=== PATIENT | female | born 1960 | race Caucasian/White ===

== ENCOUNTER → 2022-03-07 15:36 | Outpatient (CLI) | payer OTHER, SELFPAY ==
[2022-03-07 16:14] LABS: COVID19 -Nasal RAPID Negative (Negative)
== END ==
PROVIDERS: PCP Family Medicine; Visit Provider Surgery
DX: Z01.812 Encounter for preprocedural laboratory examination (principal); Z20.822 Contact with and (suspected) exposure to COVID-19
CPT/HCPCS: 87635; C9803

== ENCOUNTER 2022-03-08 13:21 | Observation (INO) | payer OTHER, SELFPAY ==
[2022-03-01 14:54] VITALS: BMI 30.2
[2022-03-08] VITALS (19 sets, daily range): BP systolic 86–155; BP diastolic 47–94; PULSE 64–93; RESP 11–31; TEMP 36.2–37.7; O2SAT 92–99; BMI 30.2
--- NOTE | 2022-03-08 | PATH_ITS ---
[facility] Accession Number: [id number] . 01 Material submitted: . gallbladder - GALLBLADDER . 01 Diagnosis: Gallbladder, Cholecystectomy: Acute and chronic cholecystitis, cholesterolosis, and cholelithiasis. [facility] 03/13/2022 1128 Local . 01 Electronically signed: . Teresa Carlin MD, Pathologist NPI- [id number] . 01 Gross description: . Received in a container of formalin labeled gallbladder is a 7.5 x 2.0 x 1.5 cm previously opened gallbladder and cystic duct. The serosa is variegated, diffusely hemorrhagic with areas of attached apparent suppurative exudate. The cystic duct margin is unremarkable and inked blue. The cystic duct is approximately 50 percent occluded by brown bile sludge and mixed with a few granular calculi averaging 0.1 cm. The gallbladder mucosa is dark red and diffusely hemorrhagic with focal gold stippling consistent with cholesterolosis. There are fibrous cut surfaces with a wall thickness averaging 0.3 cm. Software Requirements Engineer sections are submitted in cassette A1. ([id number]) /[facility] 03/09/2022 1656 Local . 01 Pathologist provided ICD-10: K80.50 . 01 CPT . 257003 Specimen Comment: A courtesy copy of this report has been sent to [phone] Performed at: 01 [facility] [address] [place] [address], [place], [place] [id number] MD Brown Frankel MD Phone: [phone]
[2022-03-08] MEDS: LACTATED RINGERS 1,000 ML 100 ML IV (09:15)
--- NOTE | 2022-03-08 09:57 | PM.PREOP ---
Pre-operative Note Interval Note History & Physical reviewed/Exam performed by Physician: Yes Changes to H&P: No
--- NOTE | 2022-03-08 10:00 | P.OP_ITS ---
Operative Date/Time/Diagnoses Date of procedure: 03/08/22 Time of procedure: 10:00 Pre-op diagnosis: Biliary colic Post-op diagnosis: same Procedure & Clinicians Procedure: Laparoscopic cholecystectomy Same procedure as scheduled: Yes Indications: Biliary colic Surgeon: Parker Pyle Industrial Truck Operator: Anthony Wilson Click Yes if Unassisted: Yes Anesthesia Type: General Operative Notes Findings: -Intrahepatic gallbladder -Short cystic duct -Bile leak from what is likely the avulsed cystic duct. Specimen(s): other (Gallbladder) Estimated Blood Loss (mL): 10 Procedure in detail: The patient was placed supine on the table and bilateral lower extremity compression devices were applied. Anesthesia was induced they were intubated with an endotracheal tube and received 2g of Ancef. A time-out was performed. They were prepped and draped in sterile fashion. An infraumbilical incision was made, the umbilical stalk was elevated and the fascia was sharply incised entering the abdomen atraumatically. A blunt tip 12mm balloon trocar was then inserted, pneumoperitoneum was established and inspection of the abdomen demonstrated no evidence of injury. They were placed head up and right side up and then a 11 mm port was placed high in the epigastrium and two 5mm in the right upper quadrant. The gallbladder was intrahepatic and there were dense adhesions within the hepatocystic triangle. Therefore the gallbladder was approached in a top-down fashion. The medial and lateral plane between the gallbladder and liver were developed with electrocautery until the gallbladder was attached only at the neck. The cystic duct was short/contracted and perhaps folded on its self.. Using careful blunt dissection I dissected at the inferior most portion of the gallbladder to separate out the cystic duct. In doing so the gallbladder was avulsed from its duct. An inspection of the the remaining structures demonstrated the common bile duct with associated adipose tissue and adhesions. I could not definitively identify the cystic duct. My surgical partner joined the case at this point. There was a small hole approximately 2 mm within a ductal structure with scant bile leak however we could not determine if this was the common duct or the cystic duct. In order to clarify the anatomy numerous attempts were made to perform a cholangiogram but this not successful. An additional 5 mm trocar was placed high in the right upper quadrant to obtain a better angle of approach with the catheter and guide wire and this was not successful either Unable to perform a cholangiogram I felt the best course of action at this point was to place a drain and close rather then risk injuring the common duct with exploration or placement of clips. A 19 F drain was placed into the gallbladder fossa. The abdomen was irrigated with sterile saline. The specimen was removed using Endo-Catch. The abdomen was desufflated. The umbilical fascia was closed with 0 Vicryl in a wcaaja-tj-lecur fashion under direct visualization. Skin incisions were irrigated and closed with 4-0 Monocryl. 30 ml of 0.25% bupivacaine was infiltrated into the subcutaneous tissue of the incisions. The wounds were sealed with Dermabond. Patient emerged from anesthesia was extubated and transferred to recovery in stable condition. The sponge and instrument count at the end of the operation was correct. Post-operative Condition: stable Disposition: same day surgery Plan for aftercare: Admission will need transfer to a facility with ERCP capability.
[2022-03-08] MEDS: CEFAZOLIN 2 GM/20 ML SYRINGE IV (10:33)
--- NOTE | 2022-03-08 10:45 | SUR.OPER ---
Supine on padded OR bed, head on pillow, safety belt at thigh, left arm padded and tucked at side. Right arm secured on padded arm board <90 degrees abduction. Legs uncrossed. Padded footboard in place. Tape over blanket to secure lower legs.
[2022-03-08] MEDS: BUPIVACAINE 0.25% (PF) VIAL 30 ML INJ (10:49)
[2022-03-08] MEDS: IOPAMIDOL 50 ML VIAL INJ (11:47)
[2022-03-08] MEDS: fentaNYL 100 MCG/2 ML INJ IV ×2 (13:45→13:53)
--- NOTE | 2022-03-08 14:00 | SUR.PHASEI ---
Pt arrived with airway, placed on nasal cannula 02, once out, pt remained on 02 and medicated with fentanyl.
--- NOTE | 2022-03-08 14:12 | SUR.PHASEI ---
Report called, awaiting time from last narcotic to be up.
--- NOTE | 2022-03-08 14:17 | SUR.PHASEI ---
Pt weaned off o2, transfered up to room on room air.
--- NOTE | 2022-03-08 14:41 | SUR.PHASEI ---
Pt transfered up to room, left with AC staf and left in stable condition.
[2022-03-08] MEDS: OXYCODONE IR 5 MG TABLET PO ×2 (15:50→19:57)
[2022-03-08] MEDS: SODIUM CHLORIDE 0.9% 1,000 ML 100 ML IV (15:51)
[2022-03-08] MEDS: HYDROMORPHONE 0.5 MG INJ IV (17:26)
[2022-03-08] MEDS: PIPERACILLIN/TAZO 3.375 GM in SODIUM CHLORIDE 0.9% 100 ML IV (17:27)
--- NOTE | 2022-03-08 18:08 | PM.HP.1 ---
History of Present Illness History of Present Illness Date Patient Seen: 03/08/22 Time Patient Seen: 18:08 Chief complaint: LAP SHAUNNA Narrative: Kell Patel is a 62-year-old woman who underwent a laparoscopic cholecystectomy today for biliary colic. She had a intrahepatic gallbladder with a shortened cystic duct with significant adhesions within the hepatocystic triangle. The procedure was performed in top-down fashion. Upon dissecting out the neck of the gallbladder the gallbladder was avulsed from its duct. Inspection of the hepatocystic triangle did not clearly identify the cystic duct there is a 2 mm lumen identified however I could not tell whether this was truly the cystic duct or hole in the common bile duct or some other structure. An attempt at cholangiogram was made to delineate the anatomy but this did not prove to be successful. A drain was left in the gallbladder fossa and she is admitted for IV antibiotics and ultimately transfer to a center with ERCP capability. I discussed these details with both the patient and her . currently she has abdominal pain which is controlled no nausea or vomiting fever. A potential transfer to the [facility] is pending. Patient History Medical History Hypertension Surgical History History of Family & Social History Family History Father Heart disease Stroke Social History: household members spouse lives independently Yes Safety & Behavioral: Feels Safe in Current Yes Environment Been Physically Hurt or No Threatened By a Person Tobacco & Substance use: Smoking Status Never smoker alcohol intake current alcohol intake frequency a few times a month Substance Use Type does not use Meds Home Medications and Allergies Home Medications Medication Instructions Recorded Confirmed Type lisinopril 20 mg tablet 20 mg PO DAILY 02/16/22 03/08/22 History naproxen 500 mg tablet 500 mg PO DAILY PRN tab 02/16/22 03/08/22 History acetaminophen 500 mg tablet 1,000 mg PO Q6H PRN 03/08/22 03/08/22 History oxycodone 5 mg tablet 5 mg PO Q6H PRN #20 tab 03/08/22 Rx Allergies Allergy/AdvReac Type Severity Reaction Status Date / Time Sulfa (Sulfonamide Allergy Severe Hives, Verified 03/08/22 13:44 Antibiotics) swelling [SULFA (SULFONAMIDE of throat ANTIBIOTICS)] Exam Vital Signs (past 8 hours): - 03/08/22 13:22 03/08/22 13:26 03/08/22 13:32 Temperature 97.7 F 97.6 F Pulse Rate 89 69 64 Respiratory Rate 31 H 30 H 26 H Blood Pressure 86/47 L 99/53 L 101/57 L Pulse Oximetry 92 96 99 03/08/22 13:36 03/08/22 13:53 03/08/22 13:58 Temperature 97.2 F L Pulse Rate 73 75 76 Respiratory Rate 11 L 20 19 Blood Pressure 98/59 L 92/59 L 120/68 Pulse Oximetry 97 97 97 03/08/22 14:09 03/08/22 14:17 03/08/22 14:30 Temperature 97.9 F 98.1 F 99.2 F Pulse Rate 75 78 87 Respiratory Rate 20 18 19 Blood Pressure 140/74 135/65 144/82 H Pulse Oximetry 98 98 97 03/08/22 15:07 03/08/22 15:08 03/08/22 15:37 Temperature 99.2 F 99.5 F Pulse Rate 85 89 Respiratory Rate 17 17 Blood Pressure 142/93 H 155/94 H Pulse Oximetry 97 96 97 03/08/22 16:37 03/08/22 17:37 Temperature 99.8 F H 99.9 F H Pulse Rate 89 93 H Respiratory Rate 20 17 Blood Pressure 136/77 139/79 Pulse Oximetry 97 95 Oxygen Delivery Method Room Air Oxygen Flow Rate 0 Narrative Exam Narrative: General adult female alert oriented no acute distress Chest nonlabored respirations Abdomen soft appropriately tender to palpation. Drain right upper quadrant serosanguineous Assessment & Plan Assessment and plan (1) Bile leak: Status: Acute Plan 62-year-old woman status post laparoscopic cholecystectomy with a bile leak. Difficult gallbladder intrahepatic shortened cystic duct performed in top-down fashion the gallbladder of was avulsed from the cystic duct. bile leak was observed from a ductal structure however I could not definitively state that the leak was from the cystic duct and therefore the leak was not ligated for concern of causing injury. She needs an ERCP with potential stenting for further treatment, this service is not available at this facility. Requesting transfer to a tertiary facility for ERCP. - NPO and IV fluids - Zosyn - pain control -SCDs Time Spent With Patient Critical Care time: I spent a total of [] minutes of critical care time on this patient's care today; this time is exclusive of procedural time.
--- NOTE | 2022-03-08 19:40 | DI.MRI.S_ITS ---
PROCEDURE: MR ABDOMEN WO CON INDICATIONS: Suspected cystic duct leak TECHNIQUE: Coronal HASTE through the abdomen, axial 2-D FLASH in- and [id number], and breath-hold T2 FSE with fat saturation through the biliary system and pancreas. Oblique coronal and axial thin-slice HASTE, radial thick-slab HASTE centered on the extrahepatic bile ducts. COMPARISON: None. FINDINGS: Image quality: There is motion artifact limiting evaluation. Pancreas and biliary system: The gallbladder is surgically absent. Intra- and extra-hepatic biliary ducts are non dilated. No filling defects within the common bile duct to suggest choledocholithiasis. Pancreas is normal in morphology, without peripancreatic edema or fluid collections. Pancreatic duct is normal in caliber. There is a small amount of free fluid in the gallbladder fossa as well as a small amount of perihepatic fluid. No discrete loculated fluid collection identified in the abdomen. Other solid organs: The liver demonstrates signal dropout on [id number] imaging consistent with fatty infiltration. There is a cyst in the right hepatic lobe. Spleen is normal in size. No adrenal nodules. Both kidneys are normal in size, without hydronephrosis. Nodes and vessels: No retroperitoneal or mesenteric adenopathy by size criteria. Aorta and inferior vena cava are normal in size. Bowel and peritoneum: Visualized bowel loops are normal in caliber. There is a small amount of perihepatic free fluid. Lung bases: No basal pleural effusions. Heart size is normal. Bones and soft tissues: No ventral hernias. Bone marrow is of normal overall signal. IMPRESSION: 1. Small amount of perihepatic free fluid and free fluid in the gallbladder fossa. The findings are nonspecific but are compatible with clinically suspected bile leak. Findings discussed with Dr. Gutierrez on 03/08/2022 at 9:27 p.m.. Dictated by: Brown Vazquez M.D. on 03/08/2022 at 21:24 Approved by: Brown Vazquez M.D. on 03/08/2022 at 21:32
[2022-03-08] MEDS: ACETAMINOPHEN 325 MG TABLET 650 MG PO (19:58)
[2022-03-08] MEDS: ONDANSETRON 4 MG/2 ML INJ IV (21:40)
[2022-03-09] VITALS (11 sets, daily range): BP systolic 117–164; BP diastolic 64–85; PULSE 80–91; RESP 16–19; TEMP 36.3–38.3; O2SAT 94–100
[2022-03-09] MEDS: OXYCODONE IR 5 MG TABLET PO ×4 (00:08→14:19)
[2022-03-09] MEDS: PIPERACILLIN/TAZO 3.375 GM in SODIUM CHLORIDE 0.9% 100 ML IV ×3 (02:30→22:13)
[2022-03-09] MEDS: ACETAMINOPHEN 325 MG TABLET 650 MG PO ×3 (02:30→23:27)
[2022-03-09 07:00] LABS: Add Manual Diff / Slide Review NO; Basophils Absolute Auto 0 /uL (0-100); Basophils Percent Auto 0.1 % (0-2); Eosinophils Absolute Auto 0 /uL (0-450); Hematocrit 38.1 % (36-46); Lymphocytes Absolute Auto 1400 /uL (1100-4500); Lymphocytes Percent Auto 10.3 % (25-40); Mean Corpuscular HGB Conc 34.2 % (30-36); Mean Corpuscular Hemoglobin 28.1 PG (26-34); Mean Corpuscular Volume 82.2 fL (80-100); Monocytes Absolute Auto 1100 /uL (0-900); Monocytes Percent Auto 7.8 % (3-14); Neutrophils Absolute Auto 11000 /uL (1500-7000); Neutrophils Percent Auto 81.8 % (50-75); Platelet Count 201 X10^3/uL (150-400); Red Blood Cell Count 4.63 X10^6/uL (4.0-5.2); White Blood Cell Count 13.5 X10^3/uL (4.5-11.0)
[2022-03-09 07:16] LABS: Alanine Aminotransferase 55 IU/L (<35); Albumin 3.9 g/dL (3.5-5.0); Albumin Globulin Ratio 1.3 (1.0-2.8); Alkaline Phosphatase 56 U/L (38-126); Aspartate Aminotransferase 71 IU/L (14-36); BUN Creatinine Ratio 17.2 (6-22); Bilirubin Total 0.8 mg/dL (0.2-1.3); Blood Urea Nitrogen 11 mg/dL (7-17); Calcium 8.7 mg/dL (8.4-10.2); Carbon Dioxide 24 mmol/L (22-32); Chloride 105 mmol/L (98-107); Estimated Glomerular Filt Rate > 60 mL/min (>60); Globulin 3.1 g/dL (1.7-4.1); Glucose 127 mg/dL (80-110); HEMOLYSIS < 15 (0-50); Sodium 137 mmol/L (137-145)
--- NOTE | 2022-03-09 08:59 | PM.PNPO.1 ---
Subjective Subjective Date Patient Seen: 03/09/22 Time Patient Seen: 09:00 Interval history: No major events overnight. Spoke with Gastroenterology and surgery at the [facility] in regards to transfer for ERCP. All are in agreement for transfer waiting on available beds MRCP overnight demonstrates no abnormality of the common bile duct. Afebrile no nausea vomiting. Abdominal pain but controlled with medication. WBC 14, total bilirubin 0.8, AST 70, ALT 60, alk phosphatase 56. Exam Vital Signs (past 8 hours): - 03/09/22 03:00 03/09/22 04:00 03/09/22 07:00 Temperature 97.9 F Pulse Rate 84 Respiratory Rate 16 Blood Pressure 126/75 Pulse Oximetry 97 96 97 03/09/22 07:55 03/09/22 08:00 Temperature 99.1 F Pulse Rate 90 Respiratory Rate 17 Blood Pressure 117/64 Pulse Oximetry 95 96 Oxygen Delivery Method Room Air Oxygen Flow Rate 0 Narrative Exam Narrative: General adult woman alert oriented no acute distress Abdomen soft appropriately tender to palpation. Drain right upper quadrant serosanguineous with bile staining Objective Labs Result Diagrams: 03/09/22 06:25 03/09/22 06:25 Labs: Laboratory Results - last 24 hr 03/09/22 03/09/22 06:25 06:25 WBC 13.5 H RBC 4.63 Hgb 13.0 Hct 38.1 MCV 82.2 MCH 28.1 MCHC 34.2 RDW 13.0 Plt Count 201 Neut % (Auto) 81.8 H Lymph % (Auto) 10.3 L [place] % (Auto) 7.8 Eos % (Auto) 0.0 L Baso % (Auto) 0.1 Neut # (Auto) 91988 H Lymph # (Auto) 1400 [place] # (Auto) 1100 H Eos # (Auto) 0 Baso # (Auto) 0 Sodium 137 Potassium 4.0 Chloride 105 Carbon Dioxide 24 BUN 11 Creatinine 0.64 Estimated GFR > 60 BUN/Creatinine Ratio 17.2 Glucose 127 H Calcium 8.7 Total Bilirubin 0.8 AST 71 H ALT 55 H Alkaline Phosphatase 56 Total Protein 7.0 Albumin 3.9 Globulin 3.1 Albumin/Globulin Ratio 1.3 PFSH Medical History Hypertension Surgical History History of Family History Father Heart disease Stroke Social History marital status: household members: spouse lives independently: Yes occupational status: employed Smoking Status: Never smoker alcohol intake: current Assessment & Plan Post-op Postoperative Procedures: Procedures Operation Date: 03/08/22 10:15 Actual Procedure Side Surgeon p Laparoscopic Cholecystectomy Not Applicable Parker Pyle MD Postoperative status narrative: 62-year-old woman postoperative day 1 status post laparoscopic cholecystectomy with a suspected cystic duct leak. I reviewed her MRCP from overnight which demonstrates a normal common bile duct. Normal total bilirubin mild transaminitis. Bile within in the abdominal drain. Discussed with the patient and her that the plan is for transfer for ERCP possible stenting for suspected cystic duct leak. -continue clear liquid diet -continue Zosyn -SCDs
[2022-03-09] MEDS: DOCUSATE 100 MG CAPSULE PO (09:21)
[2022-03-09] MEDS: SODIUM CHLORIDE 0.9% 1,000 ML 100 ML IV (12:12)
--- NOTE | 2022-03-09 12:21 | CM.IDA ---
Addendum entered by JESSICA Ledesma 03/10/22 13:51: ADD: Patient was transferred for ERCP, transferred back to and discharged today by Dr Pyle, home w/close outpatient f/u recommended. No CM team needs identified. TOO Original Note: Initial DCP Assessment Note Pt is a 62 yo female, resident of [place], s/p lap anish with a suspected cystic duct leak. has accepted for transfer for ERCP; awaiting bed availability PCP: Mandy Mcallister Payer: Adilene Macedo Reviewed chart, pt discussed in multidisciplinary rounds this morning. Patient expected to transfer once bed becomes available. No needs expected from DC planning team although will remain available in case this changes and/or patient remains admitted at , at that time, would benefit from assessment of need. JESSICA Sultana
--- NOTE | 2022-03-09 15:15 | PC.NURSE ---
Pt transported to [facility] to have a stent placed and will return to post procedure. Report given to EMS, unable to call report to bedside nurse as phone number given by transfer center was disconnected. VSS, pt showed no signs of distress, took all of pt belongings as we were unsure if pt would be returning po or staying to d/c from [place]. No further pt contact at this time
[2022-03-10 01:00] VITALS: BP 151/77; PULSE 77; RESP 17; TEMP 36.7; O2SAT 98
[2022-03-10] MEDS: SODIUM CHLORIDE 0.9% 1,000 ML 100 ML IV (02:32)
[2022-03-10] MEDS: OXYCODONE IR 5 MG TABLET PO ×2 (03:14→09:07)
[2022-03-10 04:00] VITALS: BP 127/72; PULSE 71; RESP 16; TEMP 36.4; O2SAT 96
[2022-03-10 05:00] VITALS: O2SAT 97
[2022-03-10 05:18] LABS: Add Manual Diff / Slide Review NO; Basophils Absolute Auto 0 /uL (0-100); Basophils Percent Auto 0.1 % (0-2); Eosinophils Absolute Auto 0 /uL (0-450); Hematocrit 34.4 % (36-46); Hemoglobin 11.7 g/dL (12.0-16.0); Lymphocytes Absolute Auto 1600 /uL (1100-4500); Lymphocytes Percent Auto 15.7 % (25-40); Mean Corpuscular HGB Conc 34.2 % (30-36); Mean Corpuscular Hemoglobin 28.1 PG (26-34); Mean Corpuscular Volume 82.3 fL (80-100); Monocytes Absolute Auto 800 /uL (0-900); Monocytes Percent Auto 8.2 % (3-14); Neutrophils Absolute Auto 7700 /uL (1500-7000); Platelet Count 177 X10^3/uL (150-400); Red Blood Cell Count 4.18 X10^6/uL (4.0-5.2); White Blood Cell Count 10.1 X10^3/uL (4.5-11.0)
[2022-03-10 05:47] LABS: Alanine Aminotransferase 42 IU/L (<35); Albumin 3.3 g/dL (3.5-5.0); Albumin Globulin Ratio 1.2 (1.0-2.8); Alkaline Phosphatase 44 U/L (38-126); Aspartate Aminotransferase 36 IU/L (14-36); BUN Creatinine Ratio 16.1 (6-22); Bilirubin Total 0.7 mg/dL (0.2-1.3); Blood Urea Nitrogen 10 mg/dL (7-17); Carbon Dioxide 23 mmol/L (22-32); Chloride 107 mmol/L (98-107); Estimated Glomerular Filt Rate > 60 mL/min (>60); Globulin 2.8 g/dL (1.7-4.1); Glucose 120 mg/dL (80-110); HEMOLYSIS < 15 (0-50); Sodium 138 mmol/L (137-145); Total Protein 6.1 g/dL (6.3-8.2)
[2022-03-10 08:00] VITALS: BP 126/79; PULSE 76; RESP 20; TEMP 38; O2SAT 100
[2022-03-10] MEDS: DOCUSATE 100 MG CAPSULE PO (08:00)
[2022-03-10] MEDS: ACETAMINOPHEN 325 MG TABLET 650 MG PO (08:00)
--- NOTE | 2022-03-10 08:56 | P.DS_ITS ---
History of Present Illness History of Present Illness Date Patient Seen: 03/10/22 Time Patient Seen: 08:56 Chief complaint: LAP SHAUNNA Narrative: Kell Patel is a 62-year-old woman who underwent a laparoscopic cholecystectomy 03/08 for biliary colic. She had a intrahepatic gallbladder with a shortened cystic duct with significant adhesions within the hepatocystic triangle. The procedure was performed in top-down fashion. Upon dissecting out the neck of the gallbladder the gallbladder was avulsed from its duct. Inspection of the hepatocystic triangle did not clearly identify the cystic duct there is a 2 mm lumen identified however I could not tell whether this was truly the cystic duct or hole in the common bile duct or some other structure. An attempt at cholangiogram was made to delineate the anatomy but this did not prove to be successful. A drain was left in the gallbladder fossa and she is admitted for IV antibiotics and ultimately transfer to a center with ERCP capability. Discharge Providers Provider Date of admission: 03/08/22 13:21 Discharge Date: 03/10/22 Primary care physician: Mandy Mcallister MD Discharge provider: Parker Pyle MD Summary Hospital Course Discharge Diagnosis: biliary colic bile leak Hospital Course: Underwent laparoscopic cholecystectomy 03/08. She went to [place] 03/09 and underwent ERCP with stent placment found to have a cystic duct leak which was controlled. She returned to [facility] 03/09. The day following ERCP afebrile, without leukocytosis or LFT abnormality. She is tolerating a diet, afebrile and minimal abdominal pain. Drain is bile tinged but less then yesterday. Will discharge on antibiotic and drain removal next week. Exam Vital Signs (past 8 hours): - 03/10/22 01:00 03/10/22 04:00 03/10/22 05:00 Temperature 98.1 F 97.5 F L Pulse Rate 77 71 Respiratory Rate 17 16 Blood Pressure 151/77 H 127/72 Pulse Oximetry 98 96 97 03/10/22 08:00 Temperature 100.4 F H Pulse Rate 76 Respiratory Rate 20 Blood Pressure 126/79 Pulse Oximetry 100 Oxygen Delivery Method Room Air Oxygen Flow Rate 0 Narrative Exam Narrative: Gen-Adult woman alert and oriented Abdomen-Soft appropriately tender. Drain SS scant bile tinge Objective Labs Result Diagrams: 03/10/22 04:41 03/10/22 04:41 Labs: Laboratory Results - last 24 hr 03/10/22 03/10/22 04:41 04:41 WBC 10.1 RBC 4.18 Hgb 11.7 L Hct 34.4 L MCV 82.3 MCH 28.1 MCHC 34.2 RDW 13.0 Plt Count 177 Neut % (Auto) 76.0 H Lymph % (Auto) 15.7 L [place] % (Auto) 8.2 Eos % (Auto) 0.0 L Baso % (Auto) 0.1 Neut # (Auto) 7700 H Lymph # (Auto) 1600 [place] # (Auto) 800 Eos # (Auto) 0 Baso # (Auto) 0 Sodium 138 Potassium 4.0 Chloride 107 Carbon Dioxide 23 BUN 10 Creatinine 0.62 Estimated GFR > 60 BUN/Creatinine Ratio 16.1 Glucose 120 H Calcium 8.0 L Total Bilirubin 0.7 AST 36 ALT 42 H Alkaline Phosphatase 44 Total Protein 6.1 L Albumin 3.3 L Globulin 2.8 Albumin/Globulin Ratio 1.2 PFSH Medical History Hypertension Surgical History History of Family History Father Heart disease Stroke Social History marital status: household members: spouse lives independently: Yes occupational status: employed Smoking Status: Never smoker alcohol intake: current Discharge Plan Discharge Plan Patient Disposition: Home Provider Discharge Comment: -Okay to shower tomorrow. -Do not submerge wounds in water until seen in follow-up. -No lifting >20 lbs x 4 weeks. -Walking only for exercise for 4 weeks. -No driving while taking narcotics. -follow-up in surgical clinic next week for drain removal Discharge orders & Medications Prescriptions: New oxycodone 5 mg tablet 5 mg PO Q6H PRN (Reason: pain) Qty: 20 0RF levofloxacin 500 mg tablet 500 mg PO DAILY Qty: 7 0RF Continued lisinopril 20 mg tablet 20 mg PO DAILY 0RF naproxen 500 mg tablet 500 mg PO DAILY PRN (Reason: Pain) 0RF acetaminophen 500 mg Tablet 1,000 mg PO Q6H PRN (Reason: Pain) 0RF Follow up/Referrals: Parker Pyle MD [Physician] - 2 Weeks Diet/Activity/Treatments Diet: Low-fat Skin/Wound/Dressing Care Report to your healthcare provider any signs of infection, such as:: chills, fe shawn, increased pain, unusual drainage and unusual redness Discharge Data Primary Care Provider: Mandy Mcallister Attending Provider: Parker Pyle
[2022-03-10 09:00] VITALS: O2SAT 100
== END 2022-03-10 09:05 | disposition home or self-care (01) ==
LOC: OR 03-09 10:42 → AC 03-09 10:42
PROVIDERS: Admitting Provider Surgery; PCP Family Medicine; Referring Provider Surgery; Visit Provider Surgery
PROC: 0FT44ZZ Resection of Gallbladder, Percutaneous Endoscopic Approach (ICD-10-PCS; CPT 47562; principal; 2022-03-08 10:15)
DX: K82.8 Other specified diseases of gallbladder (principal); K83.8 Other specified diseases of biliary tract; I10 Essential (primary) hypertension
CPT/HCPCS: 47562; 36415; 74181; 80053; 82962; 85025; 94760; G0378; J0690; J1100; J1170; J2405; J2543; J2704; J3010

== ENCOUNTER 2023-04-27 11:41 | Day surgery (SDC) | payer OTHER, SELFPAY ==
[2022-03-08 15:36] VITALS: BMI 30.2
[2023-04-17 10:22] VITALS: BMI 30.4
--- NOTE | 2023-04-27 | PATH_ITS ---
[facility] Accession Number: [id number] No. of containers..03 Tissue . 01 Material submitted: . PART A: cervix - EXTERNAL PART B: cervix - INTERNAL PART C: endocervix - ECC . 01 Diagnosis: A. Cervix, External, LEEP Biopsy: Focal involvement by high-grade squamous intraepithelial lesion / ISMAEL 2-3. Separate and adjacent regions of low-grade squamous intraepithelial lesion/ISMAEL-1. High-grade squamous intraepithelial lesion and low-grade squamous intraepithelial lesion appear to focally approximate a margin, favor the ectocervical margin. The endocervical margin appears to be focally involved by low-grade squamous intrapeithelial/ISMAEL-1. No invasive tumor identified. . B. Cervix, Internal, LEEP Biopsy: Endocervical tissue; negative for significant atypia. Negative glandular dysplasia or malignancy. Two minute foci of squamous mucosa, one with focal cytologic atypia suggestive of, but not diagnostic of, low-grade squamous intraepithelial lesion / ISMAEL-1. Margins are negative for dysplasia. . C. ECC: Detached strips of endocervical glandular epithelium; negative for significant atypia. [facility] 05/04/2023 1634 Local . 01 Comment: Results discussed with Dr. Barbour on 05-04-23 at approximately 4:10 p.m. . 01 Electronically signed: . Teresa Carlin MD, Pathologist NPI- [id number] . 01 Gross description: . A. Received in formalin, labeled with the patient's name and , designated external, and consists of an unoriented circular fragment of cervix measuring 1.5 x 1.3 x 0.6 cm. The ectocervix is baker and finely granular with a slit-like cervical os that measures 0.5 cm in diameter. The endocervical margin is inked orange while the remaining stromal margins are inked blue. The specimen is radially sectioned and submitted entirely and sequentially in cassettes A1-A4. B. Received in formalin, labeled with the patient's name and , designated internal, and consists of an unoriented circular fragment of cervix measuring 1.3 x 1.0 x 0.5 cm with no ectocervix identified. There is a slit-like os measuring 0.3 cm in diameter. The concave surface is inked green while the convex surface is inked orange around the endocervical margin, and the remaining convex surface is inked blue. The specimen is radially sectioned and submitted entirely in sequential quadrants in cassettes B1-B4. C. Received in formalin, labeled with the patient's name and , designated ECC, and consists of multiple baker soft tissue fragments admixed with mucoid material aggregating to 0.5 x 0.5 x 0.1 cm. The specimen is filtered and submitted entirely in cassette C1. ([id number]) /R 04/28/2023 1329 Local . 01 Microscopic: . . . 01 Pathologist provided ICD-10: N87.1, N87.0 . 01 CPT . 365202, 761400, 857213 Specimen Comment: A courtesy copy of this report has been sent to [phone] Performed at: 01 [facility] [address] [place] [address], [place], [place] [id number] MD Brown Frankel MD Phone: [phone]
[2023-04-27 11:56] VITALS: BP 140/85; PULSE 80; RESP 20; TEMP 36.3; O2SAT 99; BMI 30.4
[2023-04-27] MEDS: LACTATED RINGERS 1,000 ML 42 ML IV (12:01)
--- NOTE | 2023-04-27 12:10 | P.HPOB_ITS ---
History of Present Illness History of Present Illness Reason for admission: other (ISMAEL 2-3 on colpo directed biopsies) Narrative: Kell Patel is a 63 year old female here for LEEP procedure for ISMAEL 2 on colpo directed biopsies. Patient is a 63-year-old who had an abnormal Pap smear with positive high-risk HPV 16.? This was her 1st abnormal Pap smear.? She underwent colposcopy on 01/11/2023 and biopsy showed ISMAEL 2-3.? Consent form for LEEP procedure was reviewed with the patient. Risks are extremely minimal with possible reaction to anesthesia or medication. Possible burn to tissue other than the cervix. Minimal risk for infection or bleeding. Consent form signed and questions answered. [facility] Medical History (Updated 02/28/23 @ 15:20 by Charissa Barbour MD) Asthma (~1999) Chicken pox (~1987) Hearing loss (~2014) Hypertension (~1999) Wears contact lenses Surgical History (Updated 04/17/23 @ 10:29 by Sierra Lynn RN) Anesthesia History of History of cholecystectomy (03/08/22) History of colposcopy (01/11/23) History of surgery (~2021) Ovarian cyst (~2007) Family History (Updated 02/27/23 @ 19:45 by Daina Bernal) Father Heart disease Stroke Subdural hematoma Mother Hypertension Chronic kidney disease Sister Hypertension Grandmother Leukemia Social History marital status: household members: spouse lives independently: Yes occupational status: employed Smoking Status: Never smoker alcohol intake: current Meds Home Medications and Allergies Home Medications Medication Instructions Recorded Confirmed Type naproxen 500 mg tablet 500 mg PO DAILY PRN Pain 02/16/22 04/27/23 History acetaminophen 500 mg tablet 1,000 mg PO Q6H PRN Pain 03/08/22 04/27/23 History losartan 50 mg tablet 20 mg PO DAILY 04/27/23 04/27/23 History Allergies Allergy/AdvReac Type Severity Reaction Status Date / Time Sulfa (Sulfonamide Allergy Severe Hives, Verified 04/27/23 11:49 Antibiotics) swelling [SULFA (SULFONAMIDE of throat ANTIBIOTICS)] Review of Systems Review of Systems ROS: Yes All systems reviewed with the patient and are negative except as otherwise documented Exam Vital Signs (past 8 hours): - 04/27/23 11:56 Temperature 97.3 F L Pulse Rate 80 Respiratory Rate 20 Blood Pressure 140/85 Pulse Oximetry 99 Oxygen Delivery Method Room Air Oxygen Delivery Method Room Air Narrative Exam Narrative: HEENT exam within normal limits. Lungs are clear to auscultation percussion. Heart is regular rate and rhythm no S3-S4 or murmurs. Abdomen is soft, nontender. Extremities without edema and nontender. Assessment & Plan Assessment and plan (1) Human papilloma virus: Problem details: HPV 16 Status: Acute (2) High grade squamous intraepithelial lesion (HGSIL), grade 3 ISMAEL, on biopsy of cervix: Status: Acute Assessment & Plan narrative: Patient will undergo a LEEP procedure for diagnosis and treatment of ISMAEL 2 through 3 on colpo directed biopsies. Patient understands that the procedure will hopefully remove all of the precancer cells but that we could not guarantee the HPV would disappear. She will need to be followed closely.
--- NOTE | 2023-04-27 12:13 | PM.PREOP ---
Pre-operative Note COVID-19 Criteria for continued procedure: Expected advancement of disease process Interval Note History & Physical reviewed/Exam performed by Physician: Yes Changes to H&P: No
--- NOTE | 2023-04-27 12:43 | SUR.OPER ---
Lithotomy on padded OR bed, head on pillow, arms secured on padded arm boards at <90 degrees abduction. Legs secured in padded yellow fins stirrups.
[2023-04-27] MEDS: BUPIVACAINE 0.5% (PF) 30 ML, EPINEPHrine 0.15 MG INJ (12:48)
[2023-04-27] MEDS: POTASSIUM IODIDE/IODINE 473 ML SOLUTION TOP (12:49)
--- NOTE | 2023-04-27 12:52 | P.OP_ITS ---
Operative Date/Time/Diagnoses Date of procedure: 04/27/23 Time of procedure: 12:52 Pre-op diagnosis: ISMAEL 2-3 on colpo directed biopsies Post-op diagnosis: same Procedure & Clinicians Procedure: LEEP procedure with ECC Same procedure as scheduled: Yes Indications: ISMAEL 2-3 on colpo directed biopsies Surgeon: Charissa Barbour Click Yes if Unassisted: Yes Anesthesia Type: General Operative Notes Findings: Normal exam under anesthesia. No areas of nonstaining on cervix with Lugol's Closure Type: not applicable Specimen(s): other (LEEP with external and internal biopsies and ECC) Estimated Blood Loss (mL): 5 Blood products transfused: none Procedure in detail: Patient was brought to the operating room she underwent general anesthesia. She was placed in low stirrups. A coated bivalve speculum was placed into the vagina. The cervix was injected with 0.5% Marcaine with epinephrine. A single- tooth tenaculum was placed on the anterior lip of the cervix. The cervix was stained with Lugol's. The loop set at 60 W of cutting was used to remove the entire squamocolumnar junction. A slightly deeper section was taken of the endocervical canal. An ECC was performed. The tissue was cauterized external to the LEEP with ball cautery set at 40 rodriguez to extend the treatment zone. Monsel's was placed. The patient went to recovery room in good condition. Counts of instruments and sponges were correct. The tissue was sent for pathology. Complications: none Post-operative Condition: stable Disposition: same day surgery Plan for aftercare: Patient discharged home. Treatment and follow-up based on biopsy results.
[2023-04-27 12:55] VITALS: BP 123/77; PULSE 82; RESP 16; TEMP 36.2; O2SAT 96
[2023-04-27] MEDS: FERRIC SUBSULFATE 8 GM SOLUTION 8 ML TOP (12:59)
[2023-04-27 13:00] VITALS: BP 111/66; PULSE 84; RESP 15; O2SAT 99
[2023-04-27] MEDS: KETOROLAC 30 MG/ML VIAL IV (13:01)
[2023-04-27] MEDS: ONDANSETRON 4 MG/2 ML INJ IV (13:01)
[2023-04-27 13:10] VITALS: BP 130/78; PULSE 83; RESP 11; O2SAT 99
== END 2023-04-27 13:32 | disposition home or self-care (01) ==
PROVIDERS: Referring Provider Specialist; Visit Provider Specialist
PROC: 0UBC7ZZ Excision of Cervix, Via Natural or Artificial Opening (ICD-10-PCS; CPT 57522; principal; 2023-04-27 11:15)
DX: D06.9 Carcinoma in situ of cervix, unspecified (principal); B97.7 Papillomavirus as the cause of diseases classified elsewhere
CPT/HCPCS: 57461; A9270; J0171; J1100; J1885; J2405; J2704